=== PATIENT | male | born 1995 | race Caucasian/White ===

== ENCOUNTER → 2020-07-03 | Outpatient (CLI) | payer OTHER ==
[~2020-07-03] MED LIST: IBUPROFEN600 MG PO
== END ==
LOC: RAD 13:46
DX: M54.5 Low back pain (principal); M54.16 Radiculopathy, lumbar region; N50.811 Right testicular pain; N50.812 Left testicular pain; R10.31 Right lower quadrant pain; M47.817 Spondylosis without myelopathy or radiculopathy, lumbosacral region; Y99.0 Civilian activity done for income or pay
CPT/HCPCS: 72100; 72220

== ENCOUNTER → 2020-07-05 | Outpatient (CLI) | payer BC, OTHER | LOC: KOH-I 08:30 | DX: M54.5 Low back pain (principal) | CPT/HCPCS: 76870 ==

== ENCOUNTER 2020-10-21 06:45 | Emergency (ER) | payer BC, OTHER ==
[2020-10-21] MEDS ORDERED: IBUPROFEN600 MG PO (07:47)
== END 2020-10-21 08:09 | disposition home or self-care (01) ==
LOC: ER1 06:45
DX: S93.402A Sprain of unspecified ligament of left ankle, initial encounter (principal); W19.XXXA Unspecified fall, initial encounter
CPT/HCPCS: 73610; 73630; 99283